=== PATIENT | male | born 1995 | race Caucasian/White ===

== ENCOUNTER 2021-05-09 18:30 | Emergency (ER) | payer BC ==
[~2021-05-09] VITALS: Ht 185.4 cm; Wt 103.9 kg
[~2021-05-09 18:30] MED LIST: NAPR500T6 PO
[2021-05-09] MEDS ORDERED: diazepam 5mg tablet PO ONE (22:25)
[2021-05-09] MEDS ORDERED: ketorolac trometh inj. 60 MG/2 ML VIAL IM ONE (22:25)
[2021-05-10] MEDS ORDERED: DIAZ10TA PO (00:22)
[2021-05-10 00:43] VITALS: BP 140/83
== END 2021-05-10 00:45 | disposition home or self-care (01) ==
LOC: ER 18:30
DX: M54.50 Low back pain, unspecified (principal); R20.0 Anesthesia of skin; Z90.89 Acquired absence of other organs; Z56.0 Unemployment, unspecified; Z72.89 Other problems related to lifestyle; Z88.0 Allergy status to penicillin; Z79.899 Other long term (current) drug therapy
CPT/HCPCS: 72100; 96372; 99283; J1885

== ENCOUNTER 2023-06-22 07:15 | Inpatient (IN) | payer BC ==
[~2023-06-22] VITALS: Ht 185.4 cm; Wt 120.8 kg
[~2023-06-22 07:15] MED LIST changes: +DIAZ-546 PO
[2023-06-22] MEDS ORDERED: acetaminophen 325mg tablet PO PRN ×2 (13:50)
[2023-06-22] MEDS ORDERED: magnesium hydroxide 30ml (MOM) UD suspension PO PRN (13:50)
[2023-06-22] MEDS ORDERED: NICOTINE POLACRILEX 2 MG LOZENGE BC PRN (13:50)
[2023-06-22] MEDS ORDERED: mag hydrox/Alum hydrox/simeth 30ml oral suspension PO PRN (13:50)
[2023-06-22] MEDS ORDERED: loperamide 2mg capsule PO PRN (13:50)
[2023-06-22] MEDS ORDERED: LISD50CA3 PO (14:22)
[2023-06-22] MEDS ORDERED: VILA10TA PO (14:22)
[2023-06-22] MEDS ORDERED: VILA20TA PO (14:24)
[2023-06-22 15:22] VITALS: BP 150/97; PULSE 89; RESP 16; TEMP 97.1; O2SAT 98
[2023-06-22 16:02] VITALS: RESP 16; O2SAT 98
[2023-06-22] MEDS: lisdexamfetamine dimesylate 10mg capsule PO SCH (16:57)
[2023-06-22 19:45] VITALS: BP 147/86; PULSE 99; RESP 18; TEMP 96.9; O2SAT 100
[2023-06-23 07:00] VITALS: BP 120/85; PULSE 66; RESP 16; TEMP 97.9; O2SAT 98
[2023-06-23] MEDS: nicotine 21mg patch - 24 hr TD SCH (07:55)
[2023-06-23 13:34] LABS: CHOL/HDL RATIO 4.1 (0.00-4.99); CHOLESTEROL 192 MG/DL (0-200); HDL CHOLESTEROL 47 MG/DL (35-60); LDL CHOLESTEROL 122 MG/DL (50-100); THYROID STIMULATING HORMONE 1.75 ulU/ml (0.34-4.50); TRIGLYCERIDES 161 MG/DL (20-135)
[2023-06-23 14:17] LABS: HEMOGLOBIN A1C 5.5 % (4.5-6.2)
== END 2023-06-23 18:15 | disposition left against medical advice (07) | DRG 885 ==
LOC: ADULT MH 07:15
PROVIDERS: ADMIT Psychiatry & Neurology Psychiatry; ATTEND Psychiatry & Neurology Psychiatry
PROC: GZHZZZZ Group Psychotherapy (ICD-10-PCS; principal; 2023-06-23)
DX: F33.9 Major depressive disorder, recurrent, unspecified (principal); T51.92XA Toxic effect of unspecified alcohol, intentional self-harm, initial encounter; R45.851 Suicidal ideations; F41.1 Generalized anxiety disorder; T50.902A Poisoning by unspecified drugs, medicaments and biological substances, intentional self-harm, initial encounter; Z53.21 Procedure and treatment not carried out due to patient leaving prior to being seen by health care provider; F90.9 Attention-deficit hyperactivity disorder, unspecified type; Z90.49 Acquired absence of other specified parts of digestive tract; Y92.89 Other specified places as the place of occurrence of the external cause; Z88.0 Allergy status to penicillin
CPT/HCPCS: 36415; 80061; 83036; 84443; 87081